=== PATIENT | female | born 1960 | race Caucasian/White ===

== ENCOUNTER → 2016-09-24 | Outpatient (CLI) | payer MEDICARE ==
--- NOTE | 2016-09-24 09:49 | XR ---
EXAMINATION TYPE: XR chest 2V DATE OF EXAM: 09/24/2016 COMPARISON: Prior chest x-ray 07/07/2015 HISTORY: Shortness of breath and cough, R05, R06.02 TECHNIQUE: Frontal and lateral views of the chest are obtained. FINDINGS: There is no focal air space opacity, pleural effusion, or pneumothorax seen. The cardiac silhouette size is stable. Lung volumes are prominent. There is a mild spinal curvature. Patient is rotated. There may be a spinal curvature. The osseous structures are intact. IMPRESSION: No acute cardiopulmonary process.
== END | disposition home or self-care (01) ==
LOC: RADXRMAIN 09:06
PROVIDERS: ATTEND Internal Medicine
DX: R05 Cough (principal); R06.02 Shortness of breath
CPT/HCPCS: 71020

== ENCOUNTER → 2018-02-25 | Outpatient (CLI) | payer MEDICARE ==
--- NOTE | 2018-02-25 16:38 | BD ---
EXAMINATION TYPE: Axial Bone Density DATE OF EXAM: 02/25/2018 CLINICAL HISTORY: Height: 66 inches Weight: 180 FRAX RISK QUESTIONS: Alcohol (3 or more units per day): no Family History (Parent hip fracture): adopted Glucocorticoids (More than 3mos): no (Ex: prednisone, prednisolone, methylprednisolone, dexamethasone, and hydrocortisone). History of Fracture in Adulthood: hand, elbow Secondary Osteoporosis: 1. Type 1 Diabetes: no 2. Hyperthyroidism: no 3. Menopause before 45: yes 4. Malnutrition: no 5. Chronic liver disease: no Rheumatoid Arthritis: yes Current Tobacco Use: yes RISK FACTORS HISTORY OF: Family History of Osteoporosis: unsure/adopted Active: yes Diet low in dairy products/other sources of calcium: no Postmenopausal woman: yes Take estrogen and/or progesterone medications: no Lost more than 2 inches in height since high school: no Frequent falls: no Poor Health: no Hyperparathyroidism: no Adrenal Insufficiency: no MEDICATIONS: Prednisone or other steroids: no Thyroid Medications: no Osteoporosis Medications: not now, but at one time did Which medication: unsure How Long: unsure Additional Medications: multi-vitamin Additional History: EXAM MEASUREMENTS: Bone mineral densitometry was performed using the [employer] System. Bone mineral density as measured about the Lumbar spine is: ----- L1-L4(G/cm2): 0.918 T Score Values are as follows: ----- L2: -2.8 ----- L3: -1.1 ----- L4: -2.3 ----- L1-L4: -2.2 Bone mineral density has: Decreased -5.9% since study of: 06/05/2006 Bone mineral density about the R hip (g/cm2): 0.765 Bone mineral density about the L hip (g/cm2): 0.732 T Score values are as follows: -----R Neck: -2.0 -----L Neck: -2.2 -----R Total: -1.8 -----L Total: -1.9 Bone mineral density has: Decreased -1.3% since study of: 06/05/2006 IMPRESSION: Osteopenia (T Score between -2.5 and -1). There is slightly increased risk of fracture and the patient may be considered for treatment. Re-Screen 2-5 years. NOTE: T-SCORE=SD OF THE YOUNG ADULT MEAN.
== END | disposition home or self-care (01) ==
LOC: RADBDWWP 09:22
PROVIDERS: ATTEND Family Medicine
DX: Z09 Encounter for follow-up examination after completed treatment for conditions other than malignant neoplasm (principal); M85.88 Other specified disorders of bone density and structure, other site; Z87.39 Personal history of other diseases of the musculoskeletal system and connective tissue
CPT/HCPCS: 77080

== ENCOUNTER → 2018-02-25 | Outpatient (CLI) | payer MEDICARE ==
--- NOTE | 2018-02-28 08:23 | MM ---
Reason for exam: screening (asymptomatic). Last mammogram was performed 2 years and 7 months ago. History: Patient is postmenopausal. MG Screening Mammo w CAD Bilateral CC and MLO view(s) were taken. Prior study comparison: July 21, 2015, bilateral MG screening mammo w CAD. June 18, 2006, bilateral screening mammogram w/CAD. The breast tissue is heterogeneously dense. This may lower the sensitivity of mammography. Bilateral nodularity appears increased. Upper inner quadrant on the right. And posteriorly at 4 o'clock on the left. ASSESSMENT: Incomplete: need additional imaging evaluation, BI-RAD 0 RECOMMENDATION: Special view mammogram of both breasts.
== END | disposition home or self-care (01) ==
LOC: RADMAMWWP 09:31
PROVIDERS: ATTEND Family Medicine
DX: Z12.31 Encounter for screening mammogram for malignant neoplasm of breast (principal)
CPT/HCPCS: 77067

== ENCOUNTER → 2018-03-17 | Outpatient (CLI) | payer MEDICARE ==
--- NOTE | 2018-03-17 12:58 | MM ---
Reason for exam: additional evaluation requested from abnormal screening. Last mammogram was performed 1 month ago. History: Patient is postmenopausal. Physical Findings: Nurse did not find any significant physical abnormalities on exam. MG Work Up Mamm w CAD BILAT Bilateral spot compression CC, spot compression MLO, and LM view(s) were taken. Prior study comparison: February 25, 2018, bilateral MG screening mammo w CAD. July 21, 2015, bilateral MG screening mammo w CAD. The breast tissue is heterogeneously dense. This may lower the sensitivity of mammography. This finding is changed when compared with previous exams. These results were verbally communicated with the patient and result sheet given to the patient on 03/17/18. ASSESSMENT: Incomplete: need additional imaging evaluation, BI-RAD 0 RECOMMENDATION: Ultrasound of both breasts.
--- NOTE | 2018-03-17 13:01 | USB ---
Reason for exam: additional evaluation requested from abnormal screening. History: Patient is postmenopausal. US Breast Workup MICHAEL Right complete breast ultrasound includes all four quadrants, the retroareolar region and axilla. Finding demonstrates a 0.6 x 0.6 x 0.2cm oval, mixed lesion at 12 o'clock, a 0.7 x 0.8 x 0.2cm oval, cystic lesion at 4 o'clock, a 0.5 x 0.6 x 0.3cm cystic lesion at 6 o'clock, a 0.9 x 0.7 x 0.3cm mixed lesion at 8 o'clock for which a biopsy is recommended, a 0.8 x 0.5 x 0.3cm cystic lesion at 8 o'clock and a 1.2 x 0.8 x 0.5cm cystic lesion at 9 o'clock. Left complete breast ultrasound includes all four quadrants, the retroareolar region and axilla. Finding demonstrates a 0.4 x 0.3 x 0.2cm cystic lesion at 12 o'clock, a 0.4 x 0.4 x 0.3cm cystic lesion at 1 o'clock, a 0.7 x 0.5 x 0.4cm cystic lesion at 3 o'clock and a 1.0 x 0.8 x 0.3cm mixed lesion at 4 o'clock. These results were verbally communicated with the patient and result sheet given to the patient on 03/17/18. ASSESSMENT: Suspicious, BI-RAD 4 RECOMMENDATION: Ultrasound core biopsy of the right breast. (8 o'clock lesion) Called Dr. Ramos with mammographic findings and has scheduled an appointment for the patient for 04/17/18 at 10:[address] Abarca. PRELIMINARY REPORT CALLED AND FAXED TO DR. ABARCA ON 03/17/18.
== END | disposition home or self-care (01) ==
LOC: RADMAMWWP 10:06
PROVIDERS: ATTEND Family Medicine
DX: R92.8 Other abnormal and inconclusive findings on diagnostic imaging of breast (principal)
CPT/HCPCS: 77066

== ENCOUNTER → 2018-04-17 | Outpatient (CLI) | payer MEDICARE ==
[2018-04-17 10:43] VITALS: BP 146/71; PULSE 105; RESP 18; TEMP 98.2; BMI 29.0
--- NOTE | 2018-04-17 11:15 | P.GSHP ---
History of Present Illness H&P Date: 04/17/18 Chief Complaint: abnormal radiographs of the right breast Luz is a 58-year-old white female who presented for radiographic evaluation of her breast in February 2018. Following that x-ray additional views of both breasts were requested and then additional ultrasounds of both breast are requested. The patient was noted to have multiple cysts in both breasts on the ultrasound. In the right breast 8.9 x 0.7 cm mixed lesion at 8:00 was noted which a biopsy was recommended. The patient states this was her first ever mammogram. Additionally the patient does not feel anything of concern in her breast. She does not complain of any breast pain. The patient will infection in the breast. She drinks one pop/day. She does not drink any other caffeinated beverages. She smokes approximately 1 pack per day of cigarettes. She does not eat chocolate on a regular basis. Family history: 1.patient adopted/ mother and father both had lung cancer they were both smokers Hormonal History: Menarche:14 : 2, 2 children, breast fed: yes, first at 21 menopause: periods ended at 41 BCP: 10 years hormones: 1 year Past surgical history: 1. Cholecystectomy 2. Tubal ligation Past Medical History: 1. smoker Social History: smoke: 1PPD/40 years alcohol: none drugs: Medical marijuana occasionally/pain in her back - Constitutional Constitutional: Reports sweats, Denies chills, Denies fever - EENT Eyes: Ears: Ears, nose, mouth and throat: Denies headache, Denies sore throat - Breasts Breasts: - Cardiovascular Cardiovascular: Denies chest pain, Denies shortness of breath - Respiratory Comment: smoker Respiratory: Reports cough - Gastrointestinal Gastrointestinal: Denies abdominal pain, Denies diarrhea, Denies nausea, Denies vomiting - Genitourinary (Female) Genitourinary: Denies dysuria, Denies hematuria - Menstruation Menstruation: Reports postmenopausal - Musculoskeletal Musculoskeletal: Reports myalgias - Integumentary Integumentary: Reports pruritus - Neurological Neurological: Denies numbness, Denies weakness - Psychiatric Psychiatric: Reports depression - Endocrine Endocrine: Reports weight change, Denies fatigue - Hematologic/Lymphatic Comment: none - Allergic/Immunologic Comment: none Past Medical History Additional Past Medical History / Comment(s): back pain History of Any Multi-Drug Resistant Organisms: None Reported Past Surgical History: No Surgical Hx Reported Past Psychological History: Depression Smoking Status: Current every day smoker Past Alcohol Use History: None Reported Past Drug Use History: Marijuana Medications and Allergies Home Medications Medication Instructions Recorded Confirmed Type Calcium Carbonate [Tums] 200 mg PO 04/17/18 History Ibuprofen 200 mg PO 04/17/18 History Multivitamin [Multivitamins Adult 1 each PO 04/17/18 History Gummies] Allergies Allergy/AdvReac Type Severity Reaction Status Date / Time No Known Allergies Allergy Verified 04/17/18 10:46 Surgical - Exam Vital Signs Temp Pulse Resp BP Pulse Ox 98.2 F 105 H 18 146/71 95 04/17/18 10:40 04/17/18 10:40 04/17/18 10:40 04/17/18 10:40 04/17/18 10:40 BMI 29.1 - General well developed, well nourished, no distress - Eyes normal ocular movement - ENT no hearing loss, no congestion - Neck no masses, trachea midline - Respiratory normal respiratory effort, clear to auscultation - Cardiovascular Rhythm: regular Heart Sounds: - Abdomen Abdomen: soft, non tender, no guarding, no rigid, no rebound - Integumentary no rash - Neurologic no disoriented, no combative - Musculoskeletal normal gait - Psychiatric oriented to time, oriented to person, oriented to place, speech is normal, memory intact Breast examination: Right breast: Multiple positional exam fibrocystic changes without any discrete dominant mass or nodule of concern Right axilla: No adenopathy of concern Left breast: Multi-positional exam predominant masses or nodules of concern Left axilla: No adenopathy of concern Patient has scattered nevi over her breast greatest in the area between the breast on is larger than the rest and patient wishes this to be removed additionally on the bra line in the back for several nevi for which patient would like these to be removed Patient with bilateral fungal infection beneath the breast Results Mammogram and ultrasound reports reviewed Assessment and Plan Assessment: Impression: 1. Abnormal radiograph of the right breast 2. Fibrocystic breast changes 3. Fungal infection beneath the breast 4. Skin lesions on the breast 5. Depression 6. Family history of cancers, lung cancer 7. Patient history of tobacco use Plan: 1. Ultrasound-guided core biopsy of the right breast 2. Nystatin to apply to the skin under the breast 3. Removal of skin lesion right breast and bra line 4. We've discussed the fact that the patient smokes in at this time she is working with primary care doctor regarding this 5. Patient to follow up after ultrasound core biopsy of the right breast CC: Suzette
== END | disposition home or self-care (01) ==
LOC: WWCWWP 10:17
PROVIDERS: ATTEND Surgery
DX: Z53.9 Procedure and treatment not carried out, unspecified reason (principal)

== ENCOUNTER → 2018-05-07 | Day surgery (SDC) | payer MEDICARE ==
[2018-05-07 11:34] VITALS: BP 153/81; PULSE 99; RESP 16; TEMP 97.9; BMI 29.0
--- NOTE | 2018-05-07 13:10 | USB ---
Discontinued ultrasound guided biopsy right breast position. HISTORY: Abnormal ultrasound on 03/17/2018 Patient presented for possible ultrasound-guided core biopsy right 8:00 lesion. At real-time imaging of the area appears to reflect a simple cyst at this time. This was discussed with the patient and it was decided to biopsy be discontinued. Follow-up ultrasound is advised in 6 months. IMPRESSION: Probably benign BI-RADS 3. Recommendation: 6 month follow-up ultrasound right breast at the 8:00 position.
== END ==
LOC: RADUSWWP 11:19
PROVIDERS: ATTEND Surgery
DX: R92.8 Other abnormal and inconclusive findings on diagnostic imaging of breast (principal); Z53.8 Procedure and treatment not carried out for other reasons

== ENCOUNTER → 2018-05-22 | Outpatient (CLI) | payer MEDICARE ==
[2018-05-22 08:58] VITALS: BP 137/76; PULSE 87; RESP 18; TEMP 97.2; BMI 29.8
--- NOTE | 2018-05-22 09:41 | P.PN ---
Progress Note - Text Progress Note Date: 05/22/18 Luz is a 58-year-old white female who presented today for repeat port on results of an ultrasound-guided core biopsy of the right breast. The patient have a biopsy performed was noted by radiology that the lesion was most likely a cyst and she was given the option of repeat ultrasound in 6 months without intervention at that time. She chose this option and it was felt to be safe as per radiology. The patient is therefore going to undergo a repeat right breast ultrasound in 6 months with evaluation of the area at that time. The patient had been given a course of nystatin treatment for fungal infection beneath the breast which have resolved at this time. Physical exam: Evaluation of the area fungal infection has resolved Impression: 1. Abnormal radiograph of the right breast attempted ultrasound-guided core biopsy patient is going to have repeat right breast ultrasound in 6 months with physician exam at that time 2. Fungal infection resolved under the breast 3. Patient has 2 skin lesions the area of the breast to be removed this will be done today Plan: 1. Repeat ultrasound of the right breast in 6 months with physician exam 2. Excision of skin lesions 2 cc: Dr. Ramos
--- NOTE | 2018-05-22 09:44 | P.PCN ---
Date of Procedure: 05/22/18 Preoperative Diagnosis: Skin lesions of concern 2 Postoperative Diagnosis: Skin lesions of concern 2 Procedure(s) Performed: Excision of 2 skin lesions Anesthesia: local Surgeon: Dorcas Saavedra Estimated Blood Loss (ml): 0 Pathology: other (skin lesions times two) Condition: stable Disposition: same day Indications for Procedure: Skin lesions which have increased in size and color/darker Operative Findings: skin lesions Description of Procedure: The patient was taken to the procedure room and the 2 skin lesions were identified. One was in the area between the breast, and one was in the bra line on the posterior area. The area between the breast was approached initially. The area was prepped using Betadine 1% lidocaine was used to anesthetize the area of concern. Wide excision was performed. The excision was through the skin to the subcutaneous tissue. The lesion was approximately 1 cm x 5 mm in size. Following this the skin was closed using a 3-0 nylon suture. The lesion was sent for pathology. Following this the patient states lesion on the bra line was approached. The area was prepped using Betadine. 1% lidocaine was used to anesthetize the area of concern. Wide excision was performed. Excision was through the skin. The lesion was approximately 1 cm x 5 mm. Following excision the skin was closed using 3-0 nylon suture. The patient tolerated the procedure in stable condition. Is should be noted that instruments were changed appropriately between the 2 lesions being removed.
== END | disposition home or self-care (01) ==
LOC: WWCWWP 08:47
PROVIDERS: ATTEND Surgery
DX: L82.1 Other seborrheic keratosis (principal)
CPT/HCPCS: 88305

== ENCOUNTER → 2018-05-29 | Outpatient (CLI) | payer MEDICARE ==
[2018-05-29 09:07] VITALS: BP 133/78; PULSE 82; RESP 16; TEMP 97.8; BMI 30.7
--- NOTE | 2018-05-29 09:34 | P.PN ---
Progress Note - Text Progress Note Date: 05/29/18 Luz is here for suture removal first 2 [place] [id number]. She has no complaints related to these. Pathology reveals seborrheic keratosis benign for both lesions. The patient additionally had an ultrasound of the right breast performed and [id number]. This was for a possible ultrasound core biopsy however at the time of the procedure in real-time imaging the lesion was felt to represent a simple cyst and the procedure was discontinued. She will have a repeat right breast ultrasound in 6 months with physician exam at that time. Physical exam: Incisions clean and dry No evidence of any infection Impression: 1. Pathology from skin lesions reveals seborrheic keratosis 2. Patient to have repeat right breast ultrasound and physician exam in 6 months time Plan: 1. Suture removal 2. Follow-up in 6 months with repeat right breast mammogram and physician exam CC: Dr. Ramos
== END ==
LOC: WWCWWP 08:39
PROVIDERS: ATTEND Surgery
DX: Z53.9 Procedure and treatment not carried out, unspecified reason (principal)